=== PATIENT | female | born 1950 | race Caucasian/White ===

== ENCOUNTER 2019-08-31 15:00 | Outpatient (RCR) | payer MEDICARE, OTHER, SELFPAY | END 2019-08-31 23:59 | disposition home or self-care (01) | LOC: ANHDMC 15:00 | PROVIDERS: Visit Provider Internal Medicine Endocrinology, Diabetes & Metabolism | DX: E11.22 Type 2 diabetes mellitus with diabetic chronic kidney disease (principal); Z71.89 Other specified counseling | CPT/HCPCS: G0108 ==